=== PATIENT | male | born 1970 | race African-American/Black ===

== ENCOUNTER 2019-03-02 17:36 | Emergency (ER) | payer BC ==
[2019-03-02] MEDS ORDERED: Lidocaine 1% (PF) 30 ML VIAL ONE (17:53)
--- NOTE | 2019-03-02 18:16 | RAD ---
3 views right hand. HISTORY: Injury to right hand after using power tool. AP, lateral and oblique views right hand obtained. Soft tissue injury seen in the region of the thenar eminence. No evidence of acute bony lesion seen. IMPRESSION: No evidence of osseous abnormality seen.
== END 2019-03-02 18:27 | disposition home or self-care (01) ==
LOC: NAV ERS 17:36
DX: S61.411A Laceration without foreign body of right hand, initial encounter (principal); F17.210 Nicotine dependence, cigarettes, uncomplicated; W26.8XXA Contact with other sharp object(s), not elsewhere classified, initial encounter
CPT/HCPCS: 12002; J2001

== ENCOUNTER 2021-11-29 11:09 | Emergency (ER) | payer BC ==
[2021-11-29 20:52] LABS: SARS-CoV-2 PCR by NAA Not Detected (NotDetected)
== END 2021-11-29 12:02 | disposition home or self-care (01) ==
LOC: NAV ERS 11:09
DX: Z20.822 Contact with and (suspected) exposure to COVID-19 (principal); F17.210 Nicotine dependence, cigarettes, uncomplicated
CPT/HCPCS: 99283; U0003; U0005